=== PATIENT | male | born 1945 | race Caucasian/White ===

== ENCOUNTER 2020-01-16 14:26 | Inpatient (IN) | payer MEDICARE, OTHER ==
[~2020-01-16] VITALS: Ht 175.3 cm; Wt 96.9 kg
--- NOTE | 2020-01-16 14:30 | NUR ---
patient admitted to room 201. patient transferred from [facility] via EMS. patient A&O, complaining of 7/10 sternal/abdominal pain. patients vitals obtained and patient oriented to room. patient stable at this time. Dr Bond notified of patients arrival on unit. patient taken to surgery for EGD.
[2020-01-16] MEDS ORDERED: PROPOFOL 10 MG/ML (20ML) VIAL. IV ONE (14:56)
[2020-01-16] MEDS ORDERED: LIDOCAINE 2% PF 5 ML VIAL. ONE (14:56)
[2020-01-16] MEDS ORDERED: ePHEDrine PF IN SALINE 50 MG/10 ML SYRINGE. IV ONE (14:57)
[2020-01-16] MEDS: IV RINGERS,LACTATED 1000ML 1,000 ML IV SCH (15:15)
[2020-01-16] MEDS ORDERED: IV RINGERS,LACTATED 1000ML 1,000 ML IV SCH (15:19)
--- NOTE | 2020-01-16 15:58 | PDOC1 ---
History and Physical Date of Admission Date of Admission DATE: 01/16/20 TIME: 15:55 Identification/Chief Complaint Chief Complaint direct admit from [facility] with esophageal food bolus obstruction after eating steak today Past Medical History Cardiovascular: Hyperlipidemia Hepatobiliary: No pertinent hx ENT: No pertinent hx Renal/: No pertinent hx Family History Family History: Hypertension Social History Smoke: No ALCOHOL: heavy Drugs: None Current Medications Current Medications Current Medications Propofol (Diprivan) 200 mg STK-MED ONCE IV ; Start 01/16/20 at 14:56; Stop 01/16/20 at 14:56; Status DC Lidocaine HCl (Lidocaine Pf 2% Vial) 5 ml STK-MED ONCE .ROUTE ; Start 01/16/20 at 14:56; Stop 01/16/20 at 14:57; Status DC Ephedrine Sulfate (ePHEDrine PF IN SALINE SYRINGE) 50 mg STK-MED ONCE IV ; Start 01/16/20 at 14:57; Stop 01/16/20 at 14:57; Status DC Ringer's Solution 1,000 ml @ 100 mls/hr Q10H IV Last administered on 01/16/20at 15:15; Start 01/16/20 at 15:15 Ringer's Solution 1,000 ml @ 50 mls/hr Q20H IV ; Start 01/16/20 at 15:19; Stop 01/17/20 at 03:18 Allergies Allergies: Coded Allergies: No Known Drug Allergies (Unverified , 01/16/20) ROS Review of System was eating steak, developed chest discomfort, unable to swallow 14 pt ros otherwise neg General: No: Chills, Night Sweats, Fatigue, Malaise, Appetite, Other PSYCHOLOGICAL ROS: No: Anxiety, Behavioral Disorder, Concentration difficultie, Decreased libido, Depression, Disorientation, Hallucinations, Hostility, Irritablity, Memory difficulties, Mood Swings, Obsessive thoughts, Physical abuse, Sexual abuse, Sleep disturbances, Suicidal ideation, Other Eyes: No Blurry vision, No Decreased vision, No Double vision, No Dry eyes, No Excessive tearing, No Eye Pain, No Itchy Eyes, No Loss of vision, No Photophobia, No Scotomata, No Uses contacts, No Uses glasses, No Other HEENT: No: Heacaches, Visual Changes, Hearing change, Nasal congestion, Nasal discharge, Oral lesions, Sinus pain, Sore Throat, Epistaxis, Sneezing, Snoring, Tinnitus, Vertigo, Vocal changes, Other ALLERGY AND IMMUNOLOGY: No: Hives, Insect Bite Sensitivity, Itchy/Watery Eyes, Nasal Congestion, Post Nasal Drip, Seasonal Allergies, Other Hematological and Lymphatic: No: Bleeding Problems, Blood Clots, Blood Transfusions, Brusing, Night Sweats, Pallor, Swollen Lymph Nodes, Other Breast: No New/Changing Breast Lumps, No Nipple changes, No Nipple discharge, No Other Respiratory: No: Cough, Hemoptysis, Orthopnea, Pleuritic Pain, Shortness of breath, SOB with excertion, Sputum Changes, Stridor, Tachypnea, Wheezing, Other Cardiovascular: yes Chest Pain; No Palpitations, No Orthopnea, No Paroxysmal Noc. Dyspnea, No Edema, No Lt Headedness, No Other Gastrointestinal: Yes Other (food impaction of esophagus) Musculoskeletal: No Gait Disturbance, No Joint Pain, No Joint Stiffness, No Joint Swelling, No Muscle Pain, No Muscular Weakness, No Pain In:, No Swelling In:, No Other Neurological: No Behavorial Changes, No Bowel/Bladder ControlChng, No Confusion, No Dizziness, No Gait Disturbance, No Headaches, No Impaired Coord/balance, No Memory Loss, No Numbness/Tingling, No Seizures, No Speech Problems, No Tremors, No Visual Changes, No Weakness, No Other Skin: No Dry Skin, No Eczema, No Hair Changes, No Lumps, No Mole Changes, No Mottling, No Nail Changes, No Pruritus, No Rash, No Skin Lesion Changes, No Other, No Acne Physical Exam General: Alert, Oriented X3, Cooperative, No acute distress HEENT: PERRLA Lungs: Clear to auscultation, Normal air movement Heart: RRR, no thrills, no rubs, no gallops, no murmurs, no jug vein distention Breasts: Not examined Abdomen: Normal bowel sounds, Soft, No hepatosplenomegaly, No masses Rectal Exam: not examined PELVIC: Examination not indicated Extremities: No cyanosis Skin: No rashes, No breakdown Neuro: Normal speech, Strength at 5/5 X4 ext, Cranial nerves 3-12 NL Psych/Mental Status: Mental status NL, Mood NL Vitals Vitals Vital Signs Date Time Temp Pulse Resp B/P (MAP) Pulse Ox O2 Delivery O2 Flow Rate FiO2 01/16/20 15:16 Room Air VTE Prophylaxis Ordered VTE Prophylaxis Devices: No VTE Pharmacological Prophylaxi: Yes Assessment/Plan Assessment/Plan impression 1. Acute food bolus esophageal obstruction 2. moderate alcohol abuse , 3-6 beers a day 3. obesity 4. chest pain sec # 1 plan admit cvc bed troponin i CONSULT DR MEHTA IV FLUIDS NPO dvt prophylaxis CIWA protocol Justicifation of Admission Dx: Justifications for Admission: Justification of Admission Dx: Yes Angina: [facility] Comments: esophageal impaction ARLETH CARLTON MD Jan 16, 2020 15:58
[2020-01-16] MEDS ORDERED: ONDANSETRON PF 4 MG/2 ML VIAL. IV PRN (16:00)
[2020-01-16] MEDS ORDERED: ALBUTEROL SULFATE 2.5 MG/3 ML NEBU. NEB PRN (16:00)
[2020-01-16] MEDS ORDERED: IV NORMAL SALINE 1000ML BAG 1,000 ML IV SCH (16:00)
[2020-01-16] MEDS ORDERED: MULTIVIT INFUSN,ADULT 4,VIT K 10 ML, THIAMINE INJ 100 MG, FOLIC ACID INJ 1 MG in IV NOR... IV ONE (16:00)
[2020-01-16] MEDS ORDERED: 0.9 % SODIUM CHLORIDE 10 ML DISP.SYRIN. IV PRN (16:00)
[2020-01-16] MEDS ORDERED: ACETAMINOPHEN 650 MG SUPP.RECT. PR PRN (16:00)
[2020-01-16] MEDS ORDERED: ACETAMINOPHEN 325 MG TABLET. PO PRN (16:00)
[2020-01-16] MEDS ORDERED: ENOXAPARIN 40 MG/0.4 ML SYRINGE. SQ SCH (16:00)
[2020-01-16] MEDS ORDERED: DOCUSATE SODIUM 100 MG CAPSULE. PO PRN (16:00)
[2020-01-16] MEDS ORDERED: LORazepam 0.5 MG TABLET PO PRN (16:00)
[2020-01-16] MEDS ORDERED: VITA1CAP28 PO (16:16)
[2020-01-16] MEDS ORDERED: CALC500T54 PO (16:16)
[2020-01-16] MEDS ORDERED: ACET325T9 PO (16:16)
[2020-01-16] MEDS ORDERED: ATOR20TA58 PO (16:16)
[2020-01-16] MEDS: PANTOPRAZOLE IV PUSH 40 MG VIAL. IVP SCH (16:45)
[2020-01-16 19:41] LABS: BASO % 0 % (0-3); EOS % 0 % (0-3); HEMATOCRIT 43.3 % (39.0-53.0); HEMOGLOBIN 14.7 g/dL (13.0-17.5); LYMPH # 0.6 x10^3/uL (1.0-4.8); LYMPH % 9 % (24-48); MEAN CORPUSCULAR HEMOGLOBIN 33 pg (25-35); MEAN CORPUSCULAR HGB CONC 34 g/dL (31-37); MEAN CORPUSCULAR VOLUME 96 fL (79-100); MONO # 0.5 x10^3/uL (0.0-1.1); MONO % 7 % (0-9); NEUT # 6.1 x10^3/uL (1.8-7.7); NEUT % 84 % (31-73); PLATELET COUNT 205 x10^3/uL (140-400); RED BLOOD COUNT 4.51 x10^6/uL (4.30-5.70); WHITE BLOOD COUNT 7.2 x10^3/uL (4.0-11.0)
[2020-01-16 19:49] LABS: CALCIUM 8.5 mg/dL (8.5-10.1); GFR 73.2; POTASSIUM 3.8 mmol/L (3.5-5.1)
[2020-01-16 19:50] VITALS: BP 143/68
[2020-01-16 19:54] LABS: ALBUMIN 3.5 g/dL (3.4-5.0); ALBUMIN/GLOBULIN RATIO 1.2 (1.0-1.7); TOTAL BILIRUBIN 0.3 mg/dL (0.2-1.0); TOTAL PROTEIN 6.4 g/dL (6.4-8.2)
--- NOTE | 2020-01-16 20:15 | CONS ---
DATE OF CONSULTATION: 01/16/2020 REASON FOR CONSULTATION: Meat impaction. HISTORY OF PRESENT ILLNESS: This is a 74-year-old male with past medical history significant for hyperlipidemia, prostate cancer, history of chronic reflux, is seen with meat impaction. The patient states that he was eating steak yesterday evening, last bite of the meat became stuck and has been unable to be passed since. No fluids been tolerated nor have any secretions, come to the Emergency Room with persistent impaction. Next, he underwent a CT scan of the chest and abdomen, which were unrevealing for obstruction or mass, but retained bolus. Consultation has been requested for possible foreign body removal. PAST MEDICAL HISTORY: Hyperlipidemia, prostate cancer, status post knee surgery. ALLERGIES: None. MEDICATIONS: Atorvastatin 20 mg daily. FAMILY AND SOCIAL HISTORY: Lives with spouse. He is retired. He is not a smoker. He is a social drinker. FAMILY HISTORY: Noncontributory. REVIEW OF SYSTEMS: Per records. PHYSICAL EXAMINATION: GENERAL: Reveals a well-nourished, well-developed male who is alert, cooperative, in no acute distress. VITAL SIGNS: He is afebrile. Pulse 80, respirations 15, blood pressure is 125/75. HEENT: Reveals normocephalic, atraumatic head. Pupils and extraocular movements are not tested. Sclerae anicteric. NECK: Supple. LUNGS: Clear. CARDIOVASCULAR: Reveals an S1, S2 without S3, S4 or appreciable murmur. No crepitus is appreciated. This confirmed on CT scan. ABDOMEN: Reveals a soft abdomen. Normoactive bowel sounds, without appreciable hepatosplenomegaly. EXTREMITIES: Reveals no cyanosis, clubbing or edema. IMPRESSION: Dysphagia, most likely secondary to steak as seen with meat impaction, Schatzki's ring, eosinophilic esophagitis, Forrest's, malignancy, hiatal hernia, achalasia in the differential; therefore, recommend upper endoscopy with possible biopsy and foreign body and removal. Dilatation will most likely be performed at a later date due to the length of time that the bolus has been present. The patient's is willing to proceed. I would like to thank Dr. Mon for allowing us to consult and participate in the patient's care. MARIANN ISRAEL MD DR: Alex JOB#: [id number] / [id number]
[2020-01-16] MEDS ORDERED: DEXTROSE 50% 25 GM / 50ML DISP.SYRIN. IV PRN (20:30)
[2020-01-16] MEDS ORDERED: cloNIDine HCL 0.1 MG TABLET PO PRN (20:45)
[2020-01-16 21:40] LABS: AMPHETAMINE/METHAMPHETAMINE NEG (NEG); BARBITURATES NEG (NEG); BENZODIAZEPINES NEG (NEG); CANNABINOIDS NEG (NEG); COCAINE NEG (NEG); METHADONE NEG (NEG); OPIATES NEG (NEG); PHENCYCLIDINE NEG (NEG)
[2020-01-16 22:52] VITALS: BP 131/73
[2020-01-17] MEDS: IV RINGERS,LACTATED 1000ML 1,000 ML IV SCH ×2 (01:15→08:14)
[2020-01-17 03:52] VITALS: BP 139/80
[2020-01-17 05:34] LABS: BASO % 1 % (0-3); EOS # 0.1 x10^3/uL (0.0-0.7); EOS % 1 % (0-3); HEMATOCRIT 40.6 % (39.0-53.0); HEMOGLOBIN 13.6 g/dL (13.0-17.5); LYMPH # 1.2 x10^3/uL (1.0-4.8); LYMPH % 16 % (24-48); MEAN CORPUSCULAR HEMOGLOBIN 33 pg (25-35); MEAN CORPUSCULAR HGB CONC 34 g/dL (31-37); MEAN CORPUSCULAR VOLUME 97 fL (79-100); MONO # 0.6 x10^3/uL (0.0-1.1); MONO % 8 % (0-9); NEUT # 5.8 x10^3/uL (1.8-7.7); NEUT % 75 % (31-73); PLATELET COUNT 186 x10^3/uL (140-400); RED BLOOD COUNT 4.18 x10^6/uL (4.30-5.70); RED CELL DISTRIBUTION WIDTH 13.2 % (11.5-14.5); WHITE BLOOD COUNT 7.7 x10^3/uL (4.0-11.0)
[2020-01-17 05:54] LABS: ALBUMIN/GLOBULIN RATIO 1.1 (1.0-1.7); CALCIUM 7.9 mg/dL (8.5-10.1); CREATININE 0.9 mg/dL (0.7-1.3); GFR 82.7; TOTAL BILIRUBIN 0.4 mg/dL (0.2-1.0); TOTAL PROTEIN 5.8 g/dL (6.4-8.2)
[2020-01-17 07:00] VITALS: BP 135/85
[2020-01-17] MEDS: INSULIN LISPRO 300 UNITS/3 ML VIAL. SQ SCH ×2 (08:00→11:45)
[2020-01-17] MEDS: PANTOPRAZOLE IV PUSH 40 MG VIAL. IVP SCH (08:13)
[2020-01-17] MEDS ORDERED: FOLIC ACID 1 MG TABLET. PO SCH (09:00)
[2020-01-17] MEDS ORDERED: THIAMINE 100 MG TABLET. PO SCH (09:00)
--- NOTE | 2020-01-17 09:45 | PDOC2 ---
ALEXYS SIMMONS [employer] 01/17/20 0945: CARDIAC CONSULT DATE OF CONSULT Date of Consult DATE: 01/17/20 TIME: 09:38 REASON FOR CONSULT Reason for Consult: Chest pain REFERRING PHYSICIAN Referring Physician: Dr. Mon SOURCE Source: Chart review, Patient HISTORY OF PRESENT ILLNESS HISTORY OF PRESENT ILLNESS This is a 74 yo male who initially presented to [facility] secondary to food bolus. Patient reports he was eating steak and the last bite of meat became stuck and he was unable to pass. Had some discomfort in his chest as he felt the piece of meat was stuck and would not pass. Was not able to tolerate fluids. CT chest/abdomen was unrevealing for obstruction or mass, but retained bolus was noted. Patient was transferred to [facility] for GI evaluation. Patient underwent EGD with disimpaction this am and pain/chest discomfort has resolved. He denies any recent chest pain or shortness of breath upon exertion. No prior h/o CAD. Does have family h/o CAD. PAST MEDICAL HISTORY Cardiovascular: Hyperlipidemia GI: GERD Musculoskeletal: Osteoarthritis Renal/: Prostate Ca. PAST SURGICAL HISTORY Past Surgical History: Other (left knee ) FAMILY HISTORY Family History: Coronary Artery Disease SOCIAL HISTORY Smoke: No ALCOHOL: none Drugs: None Lives: with Family CURRENT MEDICATIONS CURRENT MEDICATIONS Current Medications Medications (Trade) Dose Ordered Sig/Andrew Route PRN Reason Start Time Stop Time Status Last Admin Dose Admin Ringer's Solution 1,000 ml @ 100 mls/hr Q10H IV 01/16/20 15:15 01/16/20 15:15 Sodium Chloride 1,000 ml @ 5 mls/hr Q24H IV 01/16/20 16:00 01/16/20 16:46 Multivitamins 10 ml/Thiamine HCl 100 mg/Folic Acid 1 mg/Sodium Chloride 1,011.2 ml @ 125 mls/ hr 1X ONCE IV 01/16/20 16:00 01/17/20 00:05 DC 01/16/20 16:46 Enoxaparin Sodium (Lovenox 40mg Syringe) 40 mg Q24H SQ 01/16/20 16:00 01/16/20 16:47 Pantoprazole Sodium (PROTONIX VIAL for IV PUSH) 40 mg DAILYAC IVP 01/16/20 16:30 01/17/20 08:13 Folic Acid (Folic Acid) 1 mg DAILY PO 01/17/20 09:00 01/17/20 08:13 Thiamine Mononitrate (Vitamin B-1) 100 mg DAILY PO 01/17/20 09:00 01/17/20 08:13 ALLERGIES ALLERGIES: Coded Allergies: No Known Drug Allergies (Unverified , 01/16/20) ROS Review of System 14 point ROS conducted with pertinent positives noted above in HPI PHYSICAL EXAM General: Alert, Oriented X3, Cooperative, No acute distress HEENT: Atraumatic, Mucous membr. moist/pink Lungs: Clear to auscultation Heart: Regular rate, Normal S1, Normal S2 Abdomen: Soft, No tenderness Extremities: No edema, Normal pulses Skin: No significant lesion Neuro: Normal speech, Sensation intact Psych/Mental Status: Mental status NL, Mood NL MUSCULOSKELETAL: Osteoarthritic changes both hands VITALS/I&O VITALS/I&O: Vital Signs Date Time Temp Pulse Resp B/P (MAP) Pulse Ox O2 Delivery O2 Flow Rate FiO2 01/17/20 08:00 Room Air 01/17/20 07:00 97.7 62 18 135/85 (102) 100 97.7 I & O 01/16/20 01/16/20 01/17/20 15:00 23:00 07:00 Intake Total 1410 ml 1220 ml Output Total 100 ml 250 ml Balance 1310 ml 970 ml LABS Lab: Laboratory Tests Test 01/16/20 15:05 01/16/20 17:51 01/16/20 18:30 01/16/20 21:15 SARS-CoV-2 Antigen (Rapid) Negative (NEGATIVE) Troponin I Quantitative < 0.017 ng/mL (0.000-0.055) White Blood Count 7.2 x10^3/uL (4.0-11.0) Red Blood Count 4.51 x10^6/uL (4.30-5.70) Hemoglobin 14.7 g/dL (13.0-17.5) Hematocrit 43.3 % (39.0-53.0) Mean Corpuscular Volume 96 fL (79-100) Mean Corpuscular Hemoglobin 33 pg (25-35) Mean Corpuscular Hemoglobin Concent 34 g/dL (31-37) Red Cell Distribution Width 13.0 % (11.5-14.5) Platelet Count 205 x10^3/uL (140-400) Neutrophils (%) (Auto) 84 % (31-73) H Lymphocytes (%) (Auto) 9 % (24-48) L Monocytes (%) (Auto) 7 % (0-9) Eosinophils (%) (Auto) 0 % (0-3) Basophils (%) (Auto) 0 % (0-3) Neutrophils # (Auto) 6.1 x10^3/uL (1.8-7.7) Lymphocytes # (Auto) 0.6 x10^3/uL (1.0-4.8) L Monocytes # (Auto) 0.5 x10^3/uL (0.0-1.1) Eosinophils # (Auto) 0.0 x10^3/uL (0.0-0.7) Basophils # (Auto) 0.0 x10^3/uL (0.0-0.2) Sodium Level 144 mmol/L (136-145) Potassium Level 3.8 mmol/L (3.5-5.1) Chloride Level 109 mmol/L (98-107) H Carbon Dioxide Level 28 mmol/L (21-32) Anion Gap 7 (6-14) Blood Urea Nitrogen 17 mg/dL (8-26) Creatinine 1.0 mg/dL (0.7-1.3) Estimated GFR (Cockcroft-Gault) 73.2 BUN/Creatinine Ratio 17 (6-20) Glucose Level 233 mg/dL (70-99) H Calcium Level 8.5 mg/dL (8.5-10.1) Total Bilirubin 0.3 mg/dL (0.2-1.0) Aspartate Amino Transferase (AST) 13 U/L (15-37) L Alanine Aminotransferase (ALT) 18 U/L (16-63) Alkaline Phosphatase 68 U/L (46-116) Total Protein 6.4 g/dL (6.4-8.2) Albumin 3.5 g/dL (3.4-5.0) Albumin/Globulin Ratio 1.2 (1.0-1.7) Urine Opiates Screen Neg (NEG) Urine Methadone Screen Neg (NEG) Urine Barbiturates Neg (NEG) Urine Phencyclidine Screen Neg (NEG) Urine Amphetamine/Methamphetamine Neg (NEG) Urine Benzodiazepines Screen Neg (NEG) Urine Cocaine Screen Neg (NEG) Urine Cannabinoids Screen Neg (NEG) Urine Ethyl Alcohol Neg (NEG) Test 01/16/20 21:31 01/17/20 04:50 01/17/20 07:56 Glucose (Fingerstick) 156 mg/dL (70-99) H 94 mg/dL (70-99) White Blood Count 7.7 x10^3/uL (4.0-11.0) Red Blood Count 4.18 x10^6/uL (4.30-5.70) L Hemoglobin 13.6 g/dL (13.0-17.5) Hematocrit 40.6 % (39.0-53.0) Mean Corpuscular Volume 97 fL (79-100) Mean Corpuscular Hemoglobin 33 pg (25-35) Mean Corpuscular Hemoglobin Concent 34 g/dL (31-37) Red Cell Distribution Width 13.2 % (11.5-14.5) Platelet Count 186 x10^3/uL (140-400) Neutrophils (%) (Auto) 75 % (31-73) H Lymphocytes (%) (Auto) 16 % (24-48) L Monocytes (%) (Auto) 8 % (0-9) Eosinophils (%) (Auto) 1 % (0-3) Basophils (%) (Auto) 1 % (0-3) Neutrophils # (Auto) 5.8 x10^3/uL (1.8-7.7) Lymphocytes # (Auto) 1.2 x10^3/uL (1.0-4.8) Monocytes # (Auto) 0.6 x10^3/uL (0.0-1.1) Eosinophils # (Auto) 0.1 x10^3/uL (0.0-0.7) Basophils # (Auto) 0.0 x10^3/uL (0.0-0.2) Sodium Level 145 mmol/L (136-145) Potassium Level 4.0 mmol/L (3.5-5.1) Chloride Level 110 mmol/L (98-107) H Carbon Dioxide Level 29 mmol/L (21-32) Anion Gap 6 (6-14) Blood Urea Nitrogen 12 mg/dL (8-26) Creatinine 0.9 mg/dL (0.7-1.3) Estimated GFR (Cockcroft-Gault) 82.7 BUN/Creatinine Ratio 13 (6-20) Glucose Level 87 mg/dL (70-99) Calcium Level 7.9 mg/dL (8.5-10.1) L Total Bilirubin 0.4 mg/dL (0.2-1.0) Aspartate Amino Transferase (AST) 14 U/L (15-37) L Alanine Aminotransferase (ALT) 16 U/L (16-63) Alkaline Phosphatase 61 U/L (46-116) Total Protein 5.8 g/dL (6.4-8.2) L Albumin 3.0 g/dL (3.4-5.0) L Albumin/Globulin Ratio 1.1 (1.0-1.7) Laboratory Tests 01/16/20 18:30 01/17/20 04:50 Laboratory Tests 01/16/20 18:30 01/17/20 04:50 ASSESSMENT/PLAN ASSESSMENT/PLAN 1. Chest pain, atypical. Trop negative. Most probably GI in nature secondary to #2. Resolved followed disimpaction this am 2. Food bolus; s/p EGD, disimpaction 3, Hyperlipidemia 4. GERD 5. H/o prostate CA Recommendations Lipids Outpatient baseline echocardiogram Follow GI recs Supportive care Nothing further warranted at this time DESTINY MONTALVO MD 01/17/20 1721: CARDIAC CONSULT ASSESSMENT/PLAN ASSESSMENT/PLAN The patient was seen and interviewed as well as examined at the bedside. The chart was reviewed. The case was discussed. Agree with the plan of care. ALEXYS SIMMONS APRN Jan 17, 2020 09:45 DESTINY MONTALVO MD Jan 17, 2020 17:21
--- NOTE | 2020-01-17 09:59 | PDOC ---
Date of Service: DATE: 01/17/20 TIME: 09:55 Subjective: Subjective: Doesn't know why he's still here, feels better. Swallowing w/o issue. H/o GERD - was on Zantac but stopped, thinks he started something else but can't remember what. Objective: Vital Signs: Vital Signs Date Time Temp Pulse Resp B/P (MAP) Pulse Ox O2 Delivery O2 Flow Rate FiO2 01/17/20 08:00 Room Air 01/17/20 07:00 97.7 62 18 135/85 (102) 100 97.7 Labs: Laboratory Tests Test 01/16/20 15:05 01/16/20 17:51 01/16/20 18:30 01/16/20 21:15 SARS-CoV-2 Antigen (Rapid) Negative Troponin I Quantitative < 0.017 ng/mL White Blood Count 7.2 x10^3/uL Red Blood Count 4.51 x10^6/uL Hemoglobin 14.7 g/dL Hematocrit 43.3 % Mean Corpuscular Volume 96 fL Mean Corpuscular Hemoglobin 33 pg Mean Corpuscular Hemoglobin Concent 34 g/dL Red Cell Distribution Width 13.0 % Platelet Count 205 x10^3/uL Neutrophils (%) (Auto) 84 % Lymphocytes (%) (Auto) 9 % Monocytes (%) (Auto) 7 % Eosinophils (%) (Auto) 0 % Basophils (%) (Auto) 0 % Neutrophils # (Auto) 6.1 x10^3/uL Lymphocytes # (Auto) 0.6 x10^3/uL Monocytes # (Auto) 0.5 x10^3/uL Eosinophils # (Auto) 0.0 x10^3/uL Basophils # (Auto) 0.0 x10^3/uL Sodium Level 144 mmol/L Potassium Level 3.8 mmol/L Chloride Level 109 mmol/L Carbon Dioxide Level 28 mmol/L Anion Gap 7 Blood Urea Nitrogen 17 mg/dL Creatinine 1.0 mg/dL Estimated GFR (Cockcroft-Gault) 73.2 BUN/Creatinine Ratio 17 Glucose Level 233 mg/dL Calcium Level 8.5 mg/dL Total Bilirubin 0.3 mg/dL Aspartate Amino Transf (AST/SGOT) 13 U/L Alanine Aminotransferase (ALT/SGPT) 18 U/L Alkaline Phosphatase 68 U/L Total Protein 6.4 g/dL Albumin 3.5 g/dL Albumin/Globulin Ratio 1.2 Urine Opiates Screen Neg Urine Methadone Screen Neg Urine Barbiturates Neg Urine Phencyclidine Screen Neg Urine Amphetamine/Methamphetamine Neg Urine Benzodiazepines Screen Neg Urine Cocaine Screen Neg Urine Cannabinoids Screen Neg Urine Ethyl Alcohol Neg Test 01/16/20 21:31 01/17/20 04:50 01/17/20 07:56 Glucose (Fingerstick) 156 mg/dL 94 mg/dL White Blood Count 7.7 x10^3/uL Red Blood Count 4.18 x10^6/uL Hemoglobin 13.6 g/dL Hematocrit 40.6 % Mean Corpuscular Volume 97 fL Mean Corpuscular Hemoglobin 33 pg Mean Corpuscular Hemoglobin Concent 34 g/dL Red Cell Distribution Width 13.2 % Platelet Count 186 x10^3/uL Neutrophils (%) (Auto) 75 % Lymphocytes (%) (Auto) 16 % Monocytes (%) (Auto) 8 % Eosinophils (%) (Auto) 1 % Basophils (%) (Auto) 1 % Neutrophils # (Auto) 5.8 x10^3/uL Lymphocytes # (Auto) 1.2 x10^3/uL Monocytes # (Auto) 0.6 x10^3/uL Eosinophils # (Auto) 0.1 x10^3/uL Basophils # (Auto) 0.0 x10^3/uL Sodium Level 145 mmol/L Potassium Level 4.0 mmol/L Chloride Level 110 mmol/L Carbon Dioxide Level 29 mmol/L Anion Gap 6 Blood Urea Nitrogen 12 mg/dL Creatinine 0.9 mg/dL Estimated GFR (Cockcroft-Gault) 82.7 BUN/Creatinine Ratio 13 Glucose Level 87 mg/dL Calcium Level 7.9 mg/dL Total Bilirubin 0.4 mg/dL Aspartate Amino Transf (AST/SGOT) 14 U/L Alanine Aminotransferase (ALT/SGPT) 16 U/L Alkaline Phosphatase 61 U/L Total Protein 5.8 g/dL Albumin 3.0 g/dL Albumin/Globulin Ratio 1.1 PE: GEN: NAD LUNGS: CTAB HEART: RRR ABD: NABS, S/ND/NT NEURO/PSYCH: A & O 3 A/P: Food bolus s/p EGD/disimpaction GERD, ACP -- DC per primary. Follow-up for outpt EGD/dilation. Continue acid-obstetrician in some form. Has no diet ordered - okay to eat per GI. Justicifation of Admission Dx: Justifications for Admission: Justification of Admission Dx: Yes Angina: [facility] JASON HIRSCH Jan 17, 2020 09:59
[2020-01-17] MEDS ORDERED: PANTOPRAZOLE 40 MG TABLET.DR. PO ONE (10:00)
[2020-01-17 10:17] LABS: CHOLESTEROL/HDL RATIO 2.2
[2020-01-17 10:45] VITALS: BP 146/77
--- NOTE | 2020-01-17 12:19 | PDOC ---
[employer] PROGRESS NOTE Date of Service DOS: DATE: 01/17/20 TIME: 12:18 Chief Complaint Chief Complaint Food impaction History of Present Illness History of Present Illness 01/17/2020 Patient seen and examined He is at his baseline and requesting discharge Discussed with RN We will discharge Vitals/I&O Vitals/I&O: Vital Signs Date Time Temp Pulse Resp B/P (MAP) Pulse Ox O2 Delivery O2 Flow Rate FiO2 01/17/20 10:45 98.2 85 18 146/77 (100) 99 Room Air 98.2 I & O 01/16/20 01/16/20 01/17/20 15:00 23:00 07:00 Intake Total 1410 ml 1220 ml Output Total 100 ml 250 ml Balance 1310 ml 970 ml Physical Exam General: Alert, Oriented X3, Cooperative, No acute distress Abdomen: Normal bowel sounds, Soft, No hepatosplenomegaly, No masses Extremities: No cyanosis Skin: No rashes, No breakdown Labs Labs: Laboratory Tests Test 01/16/20 15:05 01/16/20 17:51 01/16/20 18:30 01/16/20 21:15 SARS-CoV-2 Antigen (Rapid) Negative (NEGATIVE) Troponin I Quantitative < 0.017 ng/mL (0.000-0.055) White Blood Count 7.2 x10^3/uL (4.0-11.0) Red Blood Count 4.51 x10^6/uL (4.30-5.70) Hemoglobin 14.7 g/dL (13.0-17.5) Hematocrit 43.3 % (39.0-53.0) Mean Corpuscular Volume 96 fL (79-100) Mean Corpuscular Hemoglobin 33 pg (25-35) Mean Corpuscular Hemoglobin Concent 34 g/dL (31-37) Red Cell Distribution Width 13.0 % (11.5-14.5) Platelet Count 205 x10^3/uL (140-400) Neutrophils (%) (Auto) 84 % (31-73) Lymphocytes (%) (Auto) 9 % (24-48) Monocytes (%) (Auto) 7 % (0-9) Eosinophils (%) (Auto) 0 % (0-3) Basophils (%) (Auto) 0 % (0-3) Neutrophils # (Auto) 6.1 x10^3/uL (1.8-7.7) Lymphocytes # (Auto) 0.6 x10^3/uL (1.0-4.8) Monocytes # (Auto) 0.5 x10^3/uL (0.0-1.1) Eosinophils # (Auto) 0.0 x10^3/uL (0.0-0.7) Basophils # (Auto) 0.0 x10^3/uL (0.0-0.2) Sodium Level 144 mmol/L (136-145) Potassium Level 3.8 mmol/L (3.5-5.1) Chloride Level 109 mmol/L (98-107) Carbon Dioxide Level 28 mmol/L (21-32) Anion Gap 7 (6-14) Blood Urea Nitrogen 17 mg/dL (8-26) Creatinine 1.0 mg/dL (0.7-1.3) Estimated GFR (Cockcroft-Gault) 73.2 BUN/Creatinine Ratio 17 (6-20) Glucose Level 233 mg/dL (70-99) Calcium Level 8.5 mg/dL (8.5-10.1) Total Bilirubin 0.3 mg/dL (0.2-1.0) Aspartate Amino Transf (AST/SGOT) 13 U/L (15-37) Alanine Aminotransferase (ALT/SGPT) 18 U/L (16-63) Alkaline Phosphatase 68 U/L (46-116) Total Protein 6.4 g/dL (6.4-8.2) Albumin 3.5 g/dL (3.4-5.0) Albumin/Globulin Ratio 1.2 (1.0-1.7) Urine Opiates Screen Neg (NEG) Urine Methadone Screen Neg (NEG) Urine Barbiturates Neg (NEG) Urine Phencyclidine Screen Neg (NEG) Urine Amphetamine/Methamphetamine Neg (NEG) Urine Benzodiazepines Screen Neg (NEG) Urine Cocaine Screen Neg (NEG) Urine Cannabinoids Screen Neg (NEG) Urine Ethyl Alcohol Neg (NEG) Test 01/16/20 21:31 01/17/20 04:50 01/17/20 07:56 01/17/20 11:38 Glucose (Fingerstick) 156 mg/dL (70-99) 94 mg/dL (70-99) 208 mg/dL (70-99) White Blood Count 7.7 x10^3/uL (4.0-11.0) Red Blood Count 4.18 x10^6/uL (4.30-5.70) Hemoglobin 13.6 g/dL (13.0-17.5) Hematocrit 40.6 % (39.0-53.0) Mean Corpuscular Volume 97 fL (79-100) Mean Corpuscular Hemoglobin 33 pg (25-35) Mean Corpuscular Hemoglobin Concent 34 g/dL (31-37) Red Cell Distribution Width 13.2 % (11.5-14.5) Platelet Count 186 x10^3/uL (140-400) Neutrophils (%) (Auto) 75 % (31-73) Lymphocytes (%) (Auto) 16 % (24-48) Monocytes (%) (Auto) 8 % (0-9) Eosinophils (%) (Auto) 1 % (0-3) Basophils (%) (Auto) 1 % (0-3) Neutrophils # (Auto) 5.8 x10^3/uL (1.8-7.7) Lymphocytes # (Auto) 1.2 x10^3/uL (1.0-4.8) Monocytes # (Auto) 0.6 x10^3/uL (0.0-1.1) Eosinophils # (Auto) 0.1 x10^3/uL (0.0-0.7) Basophils # (Auto) 0.0 x10^3/uL (0.0-0.2) Sodium Level 145 mmol/L (136-145) Potassium Level 4.0 mmol/L (3.5-5.1) Chloride Level 110 mmol/L (98-107) Carbon Dioxide Level 29 mmol/L (21-32) Anion Gap 6 (6-14) Blood Urea Nitrogen 12 mg/dL (8-26) Creatinine 0.9 mg/dL (0.7-1.3) Estimated GFR (Cockcroft-Gault) 82.7 BUN/Creatinine Ratio 13 (6-20) Glucose Level 87 mg/dL (70-99) Calcium Level 7.9 mg/dL (8.5-10.1) Total Bilirubin 0.4 mg/dL (0.2-1.0) Aspartate Amino Transf (AST/SGOT) 14 U/L (15-37) Alanine Aminotransferase (ALT/SGPT) 16 U/L (16-63) Alkaline Phosphatase 61 U/L (46-116) Total Protein 5.8 g/dL (6.4-8.2) Albumin 3.0 g/dL (3.4-5.0) Albumin/Globulin Ratio 1.1 (1.0-1.7) Triglycerides Level 88 mg/dL (0-150) Cholesterol Level 122 mg/dL (0-200) LDL Cholesterol, Calculated 48 mg/dL (0-100) VLDL Cholesterol, Calculated 18 mg/dL (0-40) Non-HDL Cholesterol Calculated 66 mg/dL (0-129) HDL Cholesterol 56 mg/dL (40-60) Cholesterol/HDL Ratio 2.2 Assessment and Plan Assessmemt and Plan Resolving food impaction Plan Discharge Comment Review of Relevant I have reviewed the following items nava (where applicable) has been applied. Medications: Current Medications Medications (Trade) Dose Ordered Sig/Andrew Route PRN Reason Start Time Stop Time Status Last Admin Dose Admin Ringer's Solution 1,000 ml @ 100 mls/hr Q10H IV 01/16/20 15:15 01/16/20 15:15 Sodium Chloride 1,000 ml @ 5 mls/hr Q24H IV 01/16/20 16:00 01/16/20 16:46 Multivitamins 10 ml/Thiamine HCl 100 mg/Folic Acid 1 mg/Sodium Chloride 1,011.2 ml @ 125 mls/ hr 1X ONCE IV 01/16/20 16:00 01/17/20 00:05 DC 01/16/20 16:46 Enoxaparin Sodium (Lovenox 40mg Syringe) 40 mg Q24H SQ 01/16/20 16:00 01/16/20 16:47 Pantoprazole Sodium (PROTONIX VIAL for IV PUSH) 40 mg DAILYAC IVP 01/16/20 16:30 01/17/20 09:59 DC 01/17/20 08:13 Insulin Human Lispro (HumaLOG) 0-5 UNITS TIDWMEALS SQ 01/17/20 08:00 01/17/20 11:45 Folic Acid (Folic Acid) 1 mg DAILY PO 01/17/20 09:00 01/17/20 08:13 Thiamine Mononitrate (Vitamin B-1) 100 mg DAILY PO 01/17/20 09:00 01/17/20 08:13 Pantoprazole Sodium (Protonix) 40 mg 1X ONCE PO 01/17/20 10:00 01/17/20 10:03 DC 01/17/20 11:40 Justicifation of Admission Dx: Justifications for Admission: Justification of Admission Dx: Yes Angina: Symp at Rest MARY NEVAREZ III DO Jan 17, 2020 12:19
--- NOTE | 2020-01-17 12:29 | DS ---
DATE OF DISCHARGE: 01/17/2020 ADMISSION DIAGNOSIS: Food impaction. DISCHARGE DIAGNOSIS: Resolving food impaction. CONSULTATION: GI. PROCEDURE: EGD. HOSPITAL COURSE: The patient is a pleasant middle-aged male, who choked on his steak. He was admitted. We consulted GI, went for an EGD. Post-procedure, he has done well. Today, I saw and examined him, he is at his baseline. Heart tones are normal. Lungs are clear. He wants to go home. We plan to discharge home with close outpatient followup. DISPOSITION: Home. ACTIVITY: As tolerated. DIET: Low sodium. MEDICATIONS: Please see MRAD. TOTAL TIME: 32 minutes. ALEXL Lo NEVAREZ DO DR: DONNELL/tyler JOB#: [id number] / [id number]
--- NOTE | 2020-01-17 13:34 | NUR ---
SS following for discharge planning. SS reviewed pt chart and discussed with pt RN. Pt is from home with spouse and is currently on room air. COVID19 negative. Discharge order on the chart for home with self care.
--- NOTE | 2020-01-17 14:15 | NUR ---
Discharge Note: [facility] Discharge instructions and discharge home medications reviewed with Patient and a copy given. All questions have been answered and understanding verbalized. The following instructions and handouts were given: F/U with PCP within one week. F/U with Dr. Rodriguez on Apr 05 at 1300. Echocardiogram scheduled for Feb 15 at 1245 at [facility]. Dr. Bond's office will be calling patient to schedule follow up. Discontinued lines and drains: Peripheral IV intact. Patient discharged to Home or Self Care with Family Member via Ambulated.
[2020-01-18 01:09] LABS: HEMOGLOBIN A1C 5.7 % (4.8-5.6)
== END 2020-01-17 14:15 | disposition home or self-care (01) | DRG 395 ==
LOC: 2 NORTH 14:26
PROVIDERS: ADMIT Family Medicine; ATTEND Family Medicine
PROC: 0DC58ZZ Extirpation of Matter from Esophagus, Via Natural or Artificial Opening Endoscopic (ICD-10-PCS; principal; 2020-01-17)
DX: T18.128A Food in esophagus causing other injury, initial encounter (principal); K22.2 Esophageal obstruction; E66.9 Obesity, unspecified; E78.5 Hyperlipidemia, unspecified; F10.10 Alcohol abuse, uncomplicated; I20.9 Angina pectoris, unspecified; K21.9 Gastro-esophageal reflux disease without esophagitis; Z82.49 Family history of ischemic heart disease and other diseases of the circulatory system; Z85.46 Personal history of malignant neoplasm of prostate; M19.90 Unspecified osteoarthritis, unspecified site; Z20.828 Contact with and (suspected) exposure to other viral communicable diseases; Z79.899 Other long term (current) drug therapy; Z68.31 Body mass index [BMI] 31.0-31.9, adult; X58.XXXA Exposure to other specified factors, initial encounter; Y93.89 Activity, other specified; Y92.89 Other specified places as the place of occurrence of the external cause; Y99.8 Other external cause status
CPT/HCPCS: 36415; 43247; 80053; 80061; 80307; 82962; 83036; 84484; 85025; 87426; 99285; C9113; J1650; J1815; J2704; J3411; J3490; J7030; J7120; G0378; U0003-CS